=== PATIENT | male | born 1985 | race Caucasian/White ===

== ENCOUNTER 2022-06-24 14:47 | Emergency (ER) | payer BC ==
[2022-06-24 15:12] VITALS: BP 132/86; PULSE 77; RESP 18; TEMP 99; BMI 27.3
== END 2022-06-24 15:17 | disposition home or self-care (01) ==
LOC: FER 14:47
PROC: 0H94XZZ Drainage of Neck Skin, External Approach (ICD-10-PCS; principal; 2022-06-24)
DX: L72.3 Sebaceous cyst (principal)
CPT/HCPCS: 99282-25

== ENCOUNTER 2022-07-12 04:14 | Day surgery (SDC) | payer BC ==
[2022-07-11 09:51] VITALS: BMI 27.3
[2022-07-12 10:24] VITALS: TEMP 97.8
[2022-07-12] MEDS ORDERED: LIDOCAINE HCL 1%, 10 MG/ML (20ML VIAL) ONE (11:53)
[2022-07-12] MEDS ORDERED: BUPIVACAINE HCL/PF 0.25% (2.5MG/ML) 10 ML VIAL ONE (11:53)
[2022-07-12] MEDS ORDERED: BUPIVACAINE HCL/PF 0.25% (2.5MG/ML) 10 ML VIAL IJ ONE (12:01)
[2022-07-12] MEDS ORDERED: LIDOCAINE HCL 1%, 10 MG/ML (20ML VIAL) INF ONE (12:01)
[2022-07-12] MEDS ORDERED: BENZOIN/ALOE VERA/STORAX/TOLU 58 ML BOTTLE ONE (12:16)
[2022-07-12 13:07] VITALS: RESP 18
[2022-07-12 13:08] VITALS: BP 112/70; PULSE 58
== END 2022-07-12 12:55 | disposition home or self-care (01) ==
LOC: JASU-SURG 04:14
PROVIDERS: ATTEND Surgery
PROC: 0HB4XZZ Excision of Neck Skin, External Approach (ICD-10-PCS; principal; 2022-07-12 12:00)
DX: L72.3 Sebaceous cyst (principal)
CPT/HCPCS: 88304-TC